=== PATIENT | female | born 1950 | race Caucasian/White ===

== ENCOUNTER → 2017-08-20 | Day surgery (SDC) | payer OTHER ==
[~2017-08-20] VITALS: Ht 162.6 cm; Wt 73.5 kg
[~2017-08-20] MED LIST: CRESTOR10 M1 PO; DYAZIDE 37.5-21 EACH PO; LISINOPRIL10 M1 PO; SERTRALINE HCL100 MG PO
--- NOTE | 2017-08-20 11:36 | Operative Report ---
Operative/Inv Procedure Report Surgery Date: 08/20/17 Name of Procedure: Release carpal tunnel right Pre-Operative Diagnosis: Carpal tunnel syndrome right Post-Operative Diagnosis: Same Estimated Blood Loss: scant Surgeon/Supervisor Transcribing Operators: Chirag Okeefe MD Anesthesia: moderate sedation Operative/Procedure Note Note: Patient was counseled in regards to the procedure the alternatives the risks and expected outcomes as relates to the request for surgical intervention to treat symptomatic carpal tunnel syndrome. Regards to results. We talked about infection bleeding pain injury to the nerve resulting in permanent numbness of the fingertips as well as the possibility of palmar numbness. Additional pain after surgery can also be out, although this is a small percentage. The patient has accepted these risks and signed an informed consent today. She was brought to the operative placed supine on the table intravenous sedation antibiotics were given in the hand was prepped and draped in usual sterile fashion. Informed tourniquet was placed and then a palmar incision was deepened through skin subcutaneous tissue and palmar fascia. Transverse carpal ligament was opened under direct vision no other pathology was seen. Wound was irrigated and closed the wrist was splinted. End dictation
== END ==
LOC: STS 03:00
DX: G56.01 Carpal tunnel syndrome, right upper limb (principal); I10 Essential (primary) hypertension
CPT/HCPCS: J0690; J2250